=== PATIENT | male | born 1985 | race Caucasian/White ===

== ENCOUNTER 2019-08-15 13:20 | Emergency (ER) | payer SELFPAY ==
[~2019-08-15] VITALS: Ht 185.4 cm; Wt 70.0 kg
[2019-08-15 14:00] VITALS: BP 166/114
[2019-08-15] MEDS ORDERED: HYDR-3164 PO (14:43)
[2019-08-15] MEDS ORDERED: METH4TAB2 PO (14:43)
[2019-08-15] MEDS ORDERED: ORPH100T PO (14:43)
--- NOTE | 2019-08-15 14:43 | PHYS DOC ---
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 He states he does have a bulging disc and back issues. Patient has gotten injections in his lower back before for the pain. Patient states his bilateral low back pain is now shooting down the back of his legs bilaterally and is sharp. He denies loss of bowel bladder or saddle paresthesia. He denies any numbness or tingling at this time. But just sitting his pain is a 4 out of 10 but when he standing and starts to move or bend the pain worsens and states it is a 10. States he has naproxen at home that he has been taking. States he also has some old gabapentin that he has had for a while that he started taking. Review of Systems: Review of Systems: Musculoskeletal: low back pain or denies joint pain. [] Heart Score: Risk Factors: Risk Factors: DM, Current or recent (<one month) smoker, HTN, HLP, family history of CAD, obesity. Risk Scores: Score 0 - 3: 2.5% MACE over next 6 weeks - Discharge Home Score 4 - 6: 20.3% MACE over next 6 weeks - Admit for Clinical Observation Score 7 - 10: 72.7% MACE over next 6 weeks - Early Invasive Strategies Allergies: Allergies: Allergies Coded Allergies Type Severity Reaction Last Updated Verified amoxicillin Allergy Unknown 08/15/19 Yes sulfamethoxazole Allergy Unknown 08/15/19 Yes trimethoprim Allergy Unknown 08/15/19 Yes Physical Exam: PE: Constitutional: Well developed, well nourished, no acute distress, non-toxic appearance. [] HENT: Normocephalic, atraumatic, bilateral external ears normal, oropharynx moist, no oral exudates, nose normal. [] Eyes: PERRLA, EOMI, conjunctiva normal, no discharge. [] Neck: Normal range of motion, no tenderness, supple, no stridor. [] Cardiovascular:Heart rate regular rhythm, no murmur [] Lungs & Thorax: Bilateral breath sounds clear to auscultation [] Abdomen: Bowel sounds normal, soft, no tenderness, no masses, no pulsatile masses. [] Skin: Warm, dry, no erythema, no rash. [] Back: bilateral paraspinal tenderness, no CVA tenderness. [] Extremities: No tenderness, no cyanosis, no clubbing, ROM intact, no edema. [] Neurologic: Alert and oriented X 3, normal motor function, normal sensory function, no focal deficits noted. [] Psychologic: Affect normal, judgement normal, mood normal. [] Current Patient Data: Vital Signs: Vital Signs Date Time Temp Pulse Resp B/P (MAP) Pulse Ox O2 Delivery O2 Flow Rate FiO2 08/15/19 14:00 98.1 67 16 166/114 (131) 97 Room Air 98.1 EKG: EKG: [] Radiology/Procedures: Radiology/Procedures: [] Course & Med Decision Making: Course & Med Decision Making Pertinent Labs and Imaging studies reviewed. (See chart for details) Bilateral low back tenderness with palpation. No spinal focal bony pain. No deformities or bruising or swelling seen to the patient's back. Ambulatory with a steady gait. Denies any dysuria. Moves all extremites equally and no focal deficits. Skin pink warm and dry. [] Dragon Disclaimer: Dragon Disclaimer: This electronic medical record was generated, in whole or in part, using a voice recognition dictation system. Departure Departure Impression: Primary Impression: Back pain with sciatica Disposition: HOME, SELF-CARE Condition: STABLE Referrals: NO PCP (PCP) Patient Instructions: Sciatica with [facility] Additional Instructions: Follow-up with your doctor or your primary care doctor. Take medication as prescribed. Scripts Orphenadrine Citrate (ORPHENADRINE CITRATE) 100 Mg Tablet.er 1 TAB PO BID, #14 TAB Prov: ANIRUDHWILMER M UNDERGROUND BOLTING MACHINE OPERATOR 08/15/19 Methylprednisolone (MEDROL) 4 Mg Tab.ds.pk 1 PKG PO UD, #1 PKG Prov: WILMER OLEARY UNDERGROUND BOLTING MACHINE OPERATOR 08/15/19 Hydrocodone/Apap 5-325 (NORCO 5-325 TABLET) 1 Each Tablet 1 TAB PO PRN Q6HRS PRN for PAIN, #8 TAB 0 Refills Prov: WILMER OLEARY UNDERGROUND BOLTING MACHINE OPERATOR 08/15/19 BAFUSWILMERRomie Pappas APRN August 15, 2019 14:43
== END 2019-08-15 15:15 | disposition home or self-care (01) ==
LOC: ER 13:20
DX: M54.42 Lumbago with sciatica, left side (principal); M54.41 Lumbago with sciatica, right side; J45.909 Unspecified asthma, uncomplicated; G62.9 Polyneuropathy, unspecified; F17.200 Nicotine dependence, unspecified, uncomplicated; Z88.1 Allergy status to other antibiotic agents; Z88.2 Allergy status to sulfonamides; Z88.6 Allergy status to analgesic agent
CPT/HCPCS: 99283

== ENCOUNTER 2019-09-22 11:58 | Emergency (ER) | payer SELFPAY ==
[~2019-09-22] VITALS: Ht 182.9 cm; Wt 81.8 kg
[~2019-09-22 11:58] MED LIST: HYDR-3164 PO; METH4TAB2 PO; ORPH100T PO
[2019-09-22 13:30] VITALS: BP 132/73
[2019-09-22] MEDS ORDERED: KETO15CR2 TP (14:03)
--- NOTE | 2019-09-22 14:03 | PHYS DOC ---
Past Medical History Past Medical History: Asthma, Other Additional Past Medical Histor: NEUROPATHY Past Surgical History: No Surgical History Smoking Status: Current Every Day Smoker Alcohol Use: Occasionally General Adult EDM: Chief Complaint: rash on feet HPI: HPI: Patient is a 34 year old MALE presented with itching and irritation of both feet that he has been dealing with for 5 months. He works about 15 hours per day, in his [place], on his feet most of the time, when he got home, his sock was wet and his feet were itching and irritated, he has put over the counter cream on but not helping. Review of Systems: Review of Systems: Constitutional: Denies fever or chills. [] Eyes: Denies change in visual acuity. [] HENT: Denies nasal congestion or sore throat. [] Respiratory: Denies cough or shortness of breath. [] Cardiovascular: Denies chest pain or edema. [] GI: Denies abdominal pain, nausea, vomiting, bloody stools or diarrhea. [] : Denies dysuria. [] Musculoskeletal: Denies back pain or joint pain. [] Integument: positive for itching rash on feet. Neurologic: Denies headache, focal weakness or sensory changes. [] Endocrine: Denies polyuria or polydipsia. [] Lymphatic: Denies swollen glands. [] Psychiatric: Denies depression or anxiety. [] Heart Score: Risk Factors: Risk Factors: DM, Current or recent (<one month) smoker, HTN, HLP, family history of CAD, obesity. Risk Scores: Score 0 - 3: 2.5% MACE over next 6 weeks - Discharge Home Score 4 - 6: 20.3% MACE over next 6 weeks - Admit for Clinical Observation Score 7 - 10: 72.7% MACE over next 6 weeks - Early Invasive Strategies Allergies: Allergies: Allergies Coded Allergies Type Severity Reaction Last Updated Verified amoxicillin Allergy Unknown 08/15/19 Yes sulfamethoxazole Allergy Unknown 08/15/19 Yes trimethoprim Allergy Unknown 08/15/19 Yes Physical Exam: PE: Constitutional: Well developed, well nourished, no acute distress, non-toxic appearance. [] HENT: Normocephalic, atraumatic, bilateral external ears normal, oropharynx moist, no oral exudates, nose normal. [] Eyes: PERRLA, EOMI, conjunctiva normal, no discharge. [] Neck: Normal range of motion, no tenderness, supple, no stridor. [] Cardiovascular:Heart rate regular rhythm, no murmur [] Lungs & Thorax: Bilateral breath sounds clear to auscultation [] Abdomen: Bowel sounds normal, soft, no tenderness, no masses, no pulsatile masses. [] Skin: Warm, dry, no erythema, no rash. [] Back: No tenderness, no CVA tenderness. [] Extremities: BILATERAL FEET WITH ERYTHEMA, SCALY RASH ON TOES, WEBSPACE AND AROUND ANKLE AREA, NO SWELLING, NO PURULENT DRAINAGE. Neurologic: Alert and oriented X 3, normal motor function, normal sensory function, no focal deficits noted. [] Psychologic: Affect normal, judgement normal, mood normal. [] Current Patient Data: Vital Signs: Vital Signs Date Time Temp Pulse Resp B/P (MAP) Pulse Ox O2 Delivery O2 Flow Rate FiO2 09/22/19 12:37 98.3 58 20 132/84 (100) 98 Room Air 98.3 EKG: EKG: [] Radiology/Procedures: Radiology/Procedures: [] Course & Med Decision Making: Course & Med Decision Making Pertinent Labs and Imaging studies reviewed. (See chart for details) [] Dragon Disclaimer: [employer] Disclaimer: This electronic medical record was generated, in whole or in part, using a voice recognition dictation system. Departure Departure Impression: Primary Impression: Tinea pedis of both feet Disposition: 01 HOME, SELF-CARE Condition: STABLE Referrals: NO PCP (PCP) Patient Instructions: Athlete's Foot, Tinea Versicolor (Yeast Infection of the Skin) Scripts Ketoconazole (KETOCONAZOLE) 15 Gm Cream..g. 1 NISHANT TP BID for fungal infection for 14 Days, #90 GM 1 Refill Prov: USMAN GONZALEZ DO 09/22/19 Justicifation of Admission Dx: Justifications for Admission: Justification of Admission Dx: N/A USMAN GONZALEZ DO Sep 22, 2019 14:03
== END 2019-09-22 14:17 | disposition home or self-care (01) ==
LOC: ER 11:58
DX: B35.3 Tinea pedis (principal); J45.909 Unspecified asthma, uncomplicated; F17.200 Nicotine dependence, unspecified, uncomplicated; Z88.1 Allergy status to other antibiotic agents; Z88.2 Allergy status to sulfonamides
CPT/HCPCS: 99282